=== PATIENT | male | born 2000 | race Caucasian/White ===

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

== ENCOUNTER 2020-02-28 18:45 | Emergency (ER) | payer OTHER ==
[~2020-02-28] VITALS: Ht 175.3 cm; Wt 61.7 kg
[2020-02-28 19:01] VITALS: Ht 175.3 cm; Wt 61.7 kg
[2020-02-28 20:42] VITALS: BP 124/41
== END 2020-02-28 20:42 | disposition home or self-care (01) ==
LOC: ED 18:45
DX: T15.12XA Foreign body in conjunctival sac, left eye, initial encounter (principal); J45.909 Unspecified asthma, uncomplicated; W45.8XXA Other foreign body or object entering through skin, initial encounter; Y93.89 Activity, other specified; Y92.89 Other specified places as the place of occurrence of the external cause; Y99.8 Other external cause status